=== PATIENT | female | born 1950 | race Caucasian/White ===

== ENCOUNTER 2016-07-08 03:46 | Observation (INO) | payer OTHER, MEDICARE ==
[~2016-07-08] VITALS: Ht 152.4 cm; Wt 69.9 kg
[~2016-07-08 03:46] MED LIST: ALPH-E/SUCCI400 UNIT PO; AMBIEN CR12.5 MG PO; ASPIR-TRIN325 M1 PO; CALTRATE 600 +1 EACH PO; COQ10 SG 100 S1 EACH PO; CYMBALTA30 MG PO; FISH OIL300 MG PO; FLEXERIL10 MG PO; LIDODERM 5% P1 PATCH TD; MULTI VIT PO; NEXIUM20 MG PO; OTC ANTACID; PEPCID20 MG PO; SEROQUEL12.5 MG PO; VITAMIN D31000 UNIT PO
[2016-07-08 04:45] LABS: HEMATOCRIT 38.5 % (36.0-46.0); MCHC 32.7 G/DL (30.0-36.0); MCV 85.6 FL (83-99); MEAN PLAT.VOLUME 11.4 uM^3 (9.5-12.4); PLATELET COUNT 219 K/uL (156-360); RBC DIS.WIDTH-CV 12.7 % (11.8-14.6); RBC DIS.WIDTH-SD 39.4 % (39-53)
[2016-07-08 04:48] LABS: WHITE BLOOD COUNT 4.6 K/uL (4.1-10.2)
[2016-07-08 04:56] LABS: CHLORIDE 107 mEq/L (99-109); POTASSIUM 4.2 mEq/L (3.7-5.4); SODIUM 141 mEq/L (136-147)
[2016-07-08 04:58] LABS: GLUCOSE 112 mg/dL (70-99)
[2016-07-08 04:59] LABS: ANION GAP 11 MEQ/L (2-14); D-DIMER ELISA 0.58 mg/L FEU (< 0.57); PROTHROMBIN TIME 10.1 (9.2-11.2)
[2016-07-08 05:02] LABS: GFR ESTIMATE (CALCULATED) > 59 mL/min/; UREA NITROGEN (BUN) 14 mg/dL (9-23)
[2016-07-08 05:07] LABS: TROP-I INTERPRETATION NEGATIVE; TROPONIN-I < 0.01 ng/mL (0.0-0.30)
[2016-07-08] MEDS ORDERED: DAILY VALUE1 EACH PO (07:22)
[2016-07-08] MEDS ORDERED: EPIPEN ADU0.3 MG/0.3 IM (07:23)
[2016-07-08] MEDS ORDERED: COQ-10100 MG PO (07:24)
[2016-07-08] MEDS ORDERED: FIORICET,ESG1 TABLET PO (07:25)
[2016-07-08] MEDS ORDERED: PHENOBARBITAL32.4 MG PO (07:26)
[2016-07-08] MEDS ORDERED: BIOTIN1000 MCG PO (07:29)
[2016-07-08] MEDS ORDERED: AMBIEN10 MG PO (07:30)
[2016-07-08] MEDS ORDERED: KRILL OIL500 MG PO (07:30)
[2016-07-08 08:07] VITALS: BP 125/60
[2016-07-08] MEDS ORDERED: ASPIR-LOW81 MG PO (12:04)
[2016-07-08 12:08] VITALS: BP 108/53
[2016-07-08 13:08] LABS: TROP-I INTERPRETATION NEGATIVE; TROPONIN-I < 0.01 ng/mL (0.0-0.30)
[2016-07-08 15:27] VITALS: BP 134/51
[2016-07-08 18:50] LABS: TROP-I INTERPRETATION NEGATIVE; TROPONIN-I < 0.01 ng/mL (0.0-0.30)
== END 2016-07-08 19:38 | disposition home or self-care (01) ==
LOC: EME 03:46 → EDOF 06:51 → 5WEST 07:43
PROVIDERS: Emergency Medicine; Nurse Practitioner Adult Health
DX: R07.89 Other chest pain (principal); M79.7 Fibromyalgia; E78.5 Hyperlipidemia, unspecified
CPT/HCPCS: 71020; 78582; 80048; 84484; 85027; 85379; 85610; 85730; 93005; 99281; 99285; A9540; A9567; G0378